=== PATIENT | male | born 1975 | race American Indian/Alaskan Native ===

== ENCOUNTER 2020-10-29 07:09 | Emergency (ER) | payer SELFPAY ==
[2020-10-29] MEDS ORDERED: IBUPROFEN 800 MG TAB PO ONE (08:45)
[2020-10-29] MEDS ORDERED: MORPHINE 4 MG/1 ML INJ IV ONE (08:45)
[2020-10-29] MEDS ORDERED: ONDANSETRON 4 MG/2 ML INJ IV ONE (08:45)
[2020-10-29] MEDS ORDERED: PHENAZOPYRIDINE 200 MG TAB PO ONE (08:46)
[2020-10-29] MEDS ORDERED: cefTRIAXone/NS 2 GM/100 ML 2 GM/100 ML BAG IV ONE (08:47)
--- NOTE | 2020-10-29 08:49 | Emergency Department Report ---
ED Male HPI - General Chief complaint: Urogenital-Male Stated complaint: BLOOD IN URINE Time Seen by Provider: 10/29/20 08:42 Source: patient Mode of arrival: Ambulatory Limitations: No Limitations - History of Present Illness Initial comments: CC: "It hurts when I pee." HPI: This is a healthy 44-year-old male without significant past medical history presents with 1 day of dysuria, urinary hesitancy. Patient has hematuria. Frequent urination. Pain is severe. Severe discomfort. He has fevers and chills. Denies back pain. Several years ago patient had similar type infection. He did not require Bender catheter at time. Otherwise he does not typically have difficulty urinating. He denies rash in the genital region.He denies urethral discharge. He has been monogamous with his girlfriend of 5 years. MD Complaint: dysuria, other (Suprapubic pain) -: Gradual Location: abdomen (Lower abdomen suprapubic region) Radiation: none Severity: severe Severity scale (0 -10): 10 Quality: burning Consistency: constant Improves with: none Worsens with: urination other (Fever chills) - Related Data Sexually active: Yes Previous Rx's Medication Instructions Recorded Last Taken Type HYDROcodone/APAP 5-325 [[place] 1 each PO Q6HR PRN #10 tablet 10/29/20 Unknown Rx 5/325] Phenazopyridine [Pyridium] 200 mg PO TID 2 Days #6 tab 10/29/20 Unknown Rx cephALEXin [Keflex] 500 mg PO QID 10 Days #40 capsule 10/29/20 Unknown Rx Allergies Allergy/AdvReac Type Severity Reaction Status Date / Time No Known Allergies Allergy Unverified 10/29/20 07:22 ED Review of Systems ROS: Stated complaint: BLOOD IN URINE Other details as noted in HPI Comment: All other systems reviewed and negative Constitutional: chills, fever Respiratory: denies: cough, shortness of breath Cardiovascular: denies: chest pain Gastrointestinal: abdominal pain Genitourinary: urgency, dysuria, frequency, hematuria Musculoskeletal: denies: back pain ED Past Medical Hx - Past Medical History Previous Medical History?: No - Surgical History Past Surgical History?: No - Social History Smoking Status: Never Smoker Substance Use Type: None - Medications Home Medications: Home Medications Medication Instructions Recorded Confirmed Last Taken Type HYDROcodone/APAP 5-325 [[place] 1 each PO Q6HR PRN #10 tablet 10/29/20 Unknown Rx 5/325] Phenazopyridine [Pyridium] 200 mg PO TID 2 Days #6 tab 10/29/20 Unknown Rx cephALEXin [Keflex] 500 mg PO QID 10 Days #40 capsule 10/29/20 Unknown Rx ED Physical Exam - General Limitations: No Limitations General appearance: alert, in no apparent distress, other (Appears in pain) - Head Head exam: Present: atraumatic, normocephalic - Eye Eye exam: Present: normal appearance - ENT ENT exam: Present: mucous membranes moist - Neck Neck exam: Present: normal inspection, full ROM - Respiratory Respiratory exam: Present: normal lung sounds bilaterally. Absent: respiratory distress, wheezes, rales, rhonchi - Cardiovascular Cardiovascular Exam: Present: regular rate, normal rhythm, normal heart sounds. Absent: systolic murmur, diastolic murmur, rubs, gallop - GI/Abdominal GI/Abdominal exam: Present: soft, normal bowel sounds. Absent: distended, tenderness, guarding, rebound - Rectal Rectal exam: Present: deferred - Extremities Exam Extremities exam: Present: normal inspection - Back Exam Back exam: Present: normal inspection. Absent: full ROM, tenderness, CVA tenderness (R), CVA tenderness (L) - Neurological Exam Neurological exam: Present: alert, oriented X3 - Psychiatric Psychiatric exam: Present: normal affect, normal mood - Skin Skin exam: Present: warm, dry, intact, normal color. Absent: rash ED Course Vital Signs 10/29/20 10/29/20 10/29/20 07:27 10:21 10:22 Temperature 100.6 F H Pulse Rate 113 H Respiratory 24 Rate Blood Pressure 115/63 144/80 O2 Sat by Pulse 94 94 95 Oximetry 10/29/20 10:23 Temperature Pulse Rate Respiratory Rate Blood Pressure 144/80 O2 Sat by Pulse 95 Oximetry ED Medical Decision Making - Lab Data Result diagrams: 10/29/20 08:48 10/29/20 08:48 - Medical Decision Making Urinary tract infection: Patient received IV ceftriaxone emergency department. Differential diagnosis include prostatitis, urethritis. Patient prescribed ofloxacin Pyridium [place]. Patient did not have urinary retention. He was able to urinate easily. Referred to outpatient medicine physician. Critical care attestation.: If time is entered above; I have spent that time in minutes in the direct care of this critically ill patient, excluding procedure time. ED Disposition Clinical Impression: Urinary tract infection Disposition: TO HOME OR SELFCARE Is pt being admited?: No Does the pt Need Aspirin: No Condition: Stable Instructions: Urinary Tract Infection, Adult, [id number] Prescriptions: cephALEXin [Keflex] 500 mg PO QID 10 Days #40 capsule HYDROcodone/APAP 5-325 [[place] 5/325] 1 each PO Q6HR PRN #10 tablet PRN Reason: Pain Phenazopyridine [Pyridium] 200 mg PO TID 2 Days #6 tab Referrals: CON HANSEN MD [Staff Physician] - 3-5 Days
[2020-10-29 09:06] LABS: Hematocrit 40.4 % (35.5-45.6); Hemoglobin 14.3 gm/dl (11.8-15.2); Mean Corpuscular HGB Conc 35 % (32-34); Mean Corpuscular Volume 88 fl (84-94); Platelet Count 253 K/mm3 (140-440); Red Blood Count 4.59 M/mm3 (3.65-5.03); Red Cell Distribution Width 12.9 % (13.2-15.2)
[2020-10-29 09:26] LABS: BUN/Creatinine Ratio 10; Blood Urea Nitrogen 9 mg/dL (9-20); Calcium 9.1 mg/dL (8.4-10.2); Hemolysis Index 4
[2020-10-29 09:50] LABS: Band Neutrophils # (Manual) 0.9 K/mm3; Total Cells Counted 100
[2020-10-29 09:52] LABS: Platelet Estimate Consistent w Auto; RBC Morphology Normal
[2020-10-29 09:58] LABS: Bilirubin,Urine NEG (Negative); Blood,Urine LG (Negative); Color,Urine Yellow (Yellow); Mucus,Urine FEW /HPF; Urobilinogen,Urine < 2.0 mg/dL (<2.0)
[2020-10-29 09:59] LABS: RBC,Urine > 182.0 /HPF (0.0-6.0); WBC,Urine > 182.0 /HPF (0.0-6.0)
[2020-10-29] MEDS ORDERED: HYDROcodone/ACETAMINOPHEN 5-325 MG TAB PO ONE (11:00)
[2020-10-29 11:16] VITALS: BP 112/64
[2020-10-29] MEDS ORDERED: HYDROcodone/ACETAMINOPHEN 5-325 MG TAB ONE (11:26)
== END 2020-10-29 11:38 | disposition home or self-care (01) ==
LOC: ED 07:09
DX: N39.0 Urinary tract infection, site not specified (principal); Z79.899 Other long term (current) drug therapy
CPT/HCPCS: 36415; 80048; 81001; 85007; 85025; 96365; 96375; 99283; J0696; J2270; J2405